=== PATIENT | female | born 1980 | race Caucasian/White ===

== ENCOUNTER 2020-10-09 06:44 | Inpatient (IN) | payer OTHER ==
[~2020-10-09] VITALS: Ht 167.6 cm; Wt 58.5 kg
[2020-10-09] MEDS ORDERED: PRENATAL TABLE1 EAC1 PO (10:16)
[2020-10-09] MEDS ORDERED: SYNTHROID50 MCG (15:32)
== END 2020-10-10 11:56 | disposition home or self-care (01) | DRG 779 ==
LOC: OB/GYN 06:44 → LDR 06:44 → OB/GYN 14:15
PROVIDERS: ADMIT Obstetrics & Gynecology; ATTEND Obstetrics & Gynecology
PROC: 10A07ZX Abortion of Products of Conception, Abortifacient, Via Natural or Artificial Opening (ICD-10-PCS; principal; 2020-10-09)
DX: Z33.2 Encounter for elective termination of pregnancy (principal); O35.9XX0 Maternal care for (suspected) fetal abnormality and damage, unspecified, not applicable or unspecified; Z3A.16 16 weeks gestation of pregnancy